=== PATIENT | male | born 1975 | race African-American/Black ===

== ENCOUNTER → 2017-10-13 | Outpatient (CLI) | payer OTHER ==
[~2017-10-13] MED LIST: CONTRAST GIVEN MC
[2017-10-13] MEDS: LIDOCAINE 1% Multi-Dose 20 ML VIAL. ID (15:51)
[2017-10-13] MEDS: IOHEXOL 300 MG/ML 50 ML VIAL. INT ART (15:51)
[2017-10-13] MEDS: GADOBUTROL 7.5 MMOL/7.5 ML VIAL INT ART (15:51)
== END | disposition home or self-care (01) ==
LOC: KCIC 14:56
DX: S43.431A Superior glenoid labrum lesion of right shoulder, initial encounter (principal); X58.XXXA Exposure to other specified factors, initial encounter; Y93.89 Activity, other specified; Y92.89 Other specified places as the place of occurrence of the external cause; Y99.8 Other external cause status
CPT/HCPCS: 73040; 73222; A9585; Q9967